=== PATIENT | male | born 1970 | race Caucasian/White ===

== ENCOUNTER 2019-04-03 10:59 | Emergency (ER) | payer SELFPAY ==
[~2019-04-03] VITALS: Ht 180.3 cm; Wt 79.4 kg
[2019-04-03 11:42] VITALS: BP 148/93
== END 2019-04-03 12:50 | disposition home or self-care (01) ==
LOC: ER 10:59
DX: I10 Essential (primary) hypertension (principal); Z76.0 Encounter for issue of repeat prescription